=== PATIENT | male | born 1960 | race Caucasian/White ===

== ENCOUNTER → 2023-04-30 15:21 | Outpatient (CLI) | payer OTHER, MEDICAID, SELFPAY ==
--- NOTE | 2023-05-01 11:08 | DI.NM.S_ITS ---
DATE OF SERVICE: 04/30/2023 PROCEDURE: Exercise treadmill stress test without imaging. ORDERING PROVIDER: YE Porras INDICATIONS: The patient is a 62-year-old male status post STEMI and PCI with subsequent intracranial hemorrhage, who now presents with occasional nausea, vomiting, and dyspnea. FINDINGS: 1. The patient was able to exercise for 9 minutes and 41 seconds on standard Dirk protocol suggesting good exercise capacity with an NILTON of -10%, achieving 10.1 METS. 2. He had a normal heart rate and blood pressure response to exercise, achieving a maximum heart rate of 165 BPM (103% of his predicted maximum). 3. He had no chest discomfort or other anginal symptoms. 4. His resting ECG showed sinus rhythm with normal ST segments. There are no significant ST-segment shifts or arrhythmias with stress. IMPRESSION: 1. Normal exercise treadmill stress test for ischemia. 2. Good exercise capacity without angina or arrhythmias. Zay Hayes - DINA/josé miguel/ROOPA doc#: [id number]/job#: [id number] dd: 04/30/2023 17:02:00 dt: 04/30/2023 22:21:00 DICTATING MD/COPIES TO: Anam Jauregui MD; Barbara Marr M.D. COPIES MNE: ELVIA;
== END ==
PROVIDERS: PCP Specialist; Referring Provider Nurse Practitioner Family; Visit Provider Nurse Practitioner Family
DX: I25.10 Atherosclerotic heart disease of native coronary artery without angina pectoris (principal); I25.2 Old myocardial infarction; I44.1 Atrioventricular block, second degree; Z95.5 Presence of coronary angioplasty implant and graft
CPT/HCPCS: 93017